=== PATIENT | female | born 1975 | race Two or more races ===

== ENCOUNTER 2022-11-13 15:50 | Emergency (ER) | payer OTHER ==
[~2022-11-13] VITALS: Ht 157.5 cm; Wt 91.6 kg
--- NOTE | 2022-11-13 16:11 | NUR ---
C/O RIGHT ELBOW PAIN S/P TRIP AND FALL THIS AM. PT DENIES LOC. NO DEFORMITY NOTED, LIMITED RANGE OF MOTION. PT AMBULATED TO BED WITH STEADY GAIT AND PLACED IN MONITOR. VSS.
[2022-11-13] MEDS ORDERED: ACETAMINOPHEN ES 500 MG TABLET ONE (16:39)
--- NOTE | 2022-11-13 16:40 | NUR ---
[employer] LET OFF HELPER AT BEDSIDE FOR XRAY
[2022-11-13] MEDS: ACETAMINOPHEN 325 MG TABLET PO ONE (16:48)
--- NOTE | 2022-11-13 16:48 | NUR ---
TYLENOL PO GIVEN INDICATED, LINDA WELL.
[2022-11-13] MEDS ORDERED: IBUP-1953 PO (17:10)
--- NOTE | 2022-11-13 18:27 | NUR ---
Patient discharged to home in stable condition. Written and verbal after care instructions given. Patient verbalizes understanding of instruction.
[2022-11-13 18:32] VITALS: BP 140/79
== END 2022-11-13 18:33 | disposition home or self-care (01) ==
LOC: ER 15:59
DX: S40.021A Contusion of right upper arm, initial encounter (principal); I10 Essential (primary) hypertension; E11.9 Type 2 diabetes mellitus without complications; Z60.2 Problems related to living alone; W01.0XXA Fall on same level from slipping, tripping and stumbling without subsequent striking against object, initial encounter; Y93.89 Activity, other specified; Y92.89 Other specified places as the place of occurrence of the external cause; Y99.8 Other external cause status
CPT/HCPCS: 73060-TC; 73080-TC; 73090-TC; 73130-TC